=== PATIENT | female | born 1965 | race Caucasian/White ===

== ENCOUNTER → 2018-11-11 | Outpatient (CLI) | payer OTHER, SELFPAY | END | disposition home or self-care (01) | LOC: SL 20:30 | PROVIDERS: Family Provider Family Medicine; PCP Family Medicine; Referring Provider Otolaryngology Otolaryngology/Facial Plastic Surgery; Visit Provider Otolaryngology Otolaryngology/Facial Plastic Surgery | DX: G47.33 Obstructive sleep apnea (adult) (pediatric) (principal); J34.2 Deviated nasal septum | CPT/HCPCS: 95810 ==

== ENCOUNTER → 2018-12-05 | Outpatient (CLI) | payer OTHER, SELFPAY ==
--- NOTE | 2018-12-05 09:19 | EKG12_ITS ---
Test Reason : PRE-OP Blood Pressure : / mmHG Vent. Rate : 077 BPM Atrial Rate : 077 BPM P-R Int : 176 ms QRS Dur : 104 ms QT Int : 386 ms P-R-T Axes : 069 068 057 degrees QTc Int : 436 ms Normal sinus rhythm Normal ECG No previous ECGs available Confirmed by NIXON LA ([id number]), writer editor VERONICA MOURA ([id number]) on 12/08/2018 8:08:59 AM Referred By: Andres Ugarte Confirmed By:NIXON LA
== END | disposition home or self-care (01) ==
LOC: CVS 09:16
PROVIDERS: Family Provider Family Medicine; PCP Family Medicine; Referring Provider Otolaryngology Otolaryngology/Facial Plastic Surgery; Visit Provider Otolaryngology Otolaryngology/Facial Plastic Surgery
DX: Z01.818 Encounter for other preprocedural examination (principal)
CPT/HCPCS: 93005

== ENCOUNTER → 2018-12-10 | Outpatient (CLI) | payer OTHER, SELFPAY ==
--- NOTE | 2018-12-09 | SEP_PTH ---
PATIENT: MILY BRASHER LOC: [facility] U#:[id number] AGE/SX: 53/F ROOM: RE12/10/[address]: Dr. Andres Ugarte MD : 1965 BED: DIS: 12/10/2018 SPEC #: [id number] RECD: 12/10/18 15:28 STATUS: ZULMA PEPE #: [id number] AIDEN: 12/09/18 00:[address]: Andres Ugarte DEPT: SURGICAL PATHOLOGY RECD BY: Jayme Thompson ENTERED: 12/11/18 09:36 SP TYPE: SEPTUM OTHR DR: Dr. Prashant Fan MD [facility] Tissues: Nasal septum, NOS Procedures: Decalcification bone/plaque Surgery Specimen Level III HEADER OPERATION: Septoplasty, resection inferior turbinates PRE-OP DIAGNOSIS: Deviated septum TISSUE SUBMITTED: Septal cartilage MICROSCOPIC DIAGNOSIS Septal cartilage: A piece of bone and cartilage, clinically deviated nasal septum. SJ:sandy 12/17/18 MICROSCOPIC DESCRIPTION Slides are reviewed. GROSS DESCRIPTION Received in fixative is one container labeled with the patient's name and designated septal cartilage. The specimen consists of a piece of bone and cartilage measuring 0.5 x 0.5 x 0.2 cm. The entire specimen is submitted in one cassette after decalcification. / ANN:sandy 12/11/18 TC:5 CPT: 72185, 17375
== END | disposition home or self-care (01) ==
LOC: LABSPEC 15:39
PROVIDERS: Family Provider Family Medicine; PCP Family Medicine; Referring Provider Otolaryngology Otolaryngology/Facial Plastic Surgery; Visit Provider Otolaryngology Otolaryngology/Facial Plastic Surgery
DX: J34.2 Deviated nasal septum (principal)
CPT/HCPCS: 88304; 88311

== ENCOUNTER → 2024-08-29 | Outpatient (CLI) | payer OTHER, SELFPAY ==
--- NOTE | 2024-08-29 08:45 | US_ITS ---
PROCEDURE: ABDOMEN LIMITED 08/29/2024 REASON FOR EXAM: CHOLECYSTITIS COMPARISON: CT abdomen and pelvis on 07/11/2024 FINDINGS: Liver: Grossly normal size and echotexture. Measures 14.1 cm longitudinally. No discrete lesion. Gallbladder: There are gallstones present resulting in the wall echo shadow sign. No significant gallbladder wall thickening or pericholecystic fluid. Negative sonographic Velez's sign per technologist report. Common bile duct: Borderline dilated measuring 7 mm . Pancreas: Visualized portions are sonographically unremarkable. Right kidney: 10.5 x 3.9 by 5.1 cm. No hydronephrosis. US/Abdomen Limited IMPRESSION: Cholelithiasis, without additional findings of acute cholecystitis at this time . Reading Location: [facility]
== END | disposition home or self-care (01) ==
LOC: US 08:43
PROVIDERS: PCP Nurse Practitioner Family; Referring Provider Student in an Organized Health Care Education/Training Program; Visit Provider Student in an Organized Health Care Education/Training Program
DX: K81.9 Cholecystitis, unspecified (principal)
CPT/HCPCS: 76705

== ENCOUNTER 2024-11-05 08:05 | Day surgery (SDC) | payer OTHER, SELFPAY ==
--- NOTE | 2024-10-26 08:49 | EKG12_ITS ---
Test Reason : PREOP Blood Pressure : */* mmHG Vent. Rate : 73 BPM Atrial Rate : 73 BPM P-R Int : 174 ms QRS Dur : 104 ms QT Int : 396 ms P-R-T Axes : 71 85 52 degrees QTcB Int : 436 ms Normal sinus rhythm Normal ECG Confirmed by EMELI SKELTON, GERI ([id number]), mapping editor SHIVANI AYOUB ([id number]) on 10/27/2024 6:37:37 AM Referred By: Adrián Lazo Confirmed By: GERI SAINZ MD
[2024-10-26 10:28] LABS: Hematocrit 35.4 % (37-47); Hemoglobin 12.0 g/dL (12.0-15.0); Mean Corp Hgb Conc 33.9 g/dL (32-36); Mean Corpuscular Volume 95.7 fL (81-99); Mean Platelet Vol. 10.2 fl (6.2-12.0); Platelet Count 379 K/mm3 (150-450); RBC Distribution Width CV 13.7 % (11.6-14.6); RBC Distribution Width SD 47.6 fl (35.1-43.9); Red Blood Count 3.70 M/mm3 (4.2-5.4); White Blood Count 5.3 K/mm3 (4.4-11.0)
[2024-11-05] VITALS (11 sets, daily range): BP systolic 111–136; BP diastolic 57–72; PULSE 52–79; RESP 14–16; TEMP 36–36.4; O2SAT 93–98; BMI 27.6
[2024-11-05] MEDS: Lactated Ringers 1,000 ML 15 ML IV (08:39)
[2024-11-05] MEDS: INDOCYANINE GREEN 3.75 MG in Syringe 1.5 ML 999 MG IV (08:40)
--- NOTE | 2024-11-05 09:04 | PRE.ANES_ITS ---
ASA Classification* ASA Classification ASA Classification: 2 Assessment & Plan Anesthesia* Anesthesia Assessment Anesthesia Assessment: Discussed sedation and/or anesthesia options, risks, benefits, and alternatives with patient/parents/legal guardian/POA. Questions invited. The patient/parents/legal guardian/POA seems to understand and agrees to proceed with anesthesia plan. Reviewed the physical assessment, medical history, allergy history and patient home medications list prior to surgery/procedure/anesthetic and documented any changes. Performed airway and anesthesia risk assessments. Anesthesia Type Anesthesia Type: General History Source History Obtained from:: Patient and Chart Anesthesia Focused Assessment* Temperature: 96.8 F Pulse Rate: 52 Blood Pressure: 111/66 Respiratory Rate: 16 Pulse Ox: 98 Oxygen Delivery Method: Room Air Airway Assessment Mouth opens: >3 cm Mallampati Score: III Teeth Condition: Caps/Crowns (Patient has 1 crown. It is tight.) Neck Range of motion (ROM): Full ROM Comment: Short temporomandibular distance Labs Anesthesia Preop lab: CBC WBC 5.3 K/mm3 (4.4-11.0) 10/26/24 09:03 10/26/24 RBC 3.70 M/mm3 (4.2-5.4) L 10/26/24 09:03 10/26/24 Hgb 12.0 g/dL (12.0-15.0) 10/26/24 09:03 10/26/24 Hct 35.4 % (37-47) L 10/26/24 09:03 10/26/24 Plt Count 379 K/mm3 (150-450) 10/26/24 09:03 10/26/24 CHEMISTRY COAG Pre-Assessment Diagnosis/Proposed Procedure Planned Operative Procedure(s): ROBOTIC CHOLECYSTECTOMY WITH ICG Anesthesia History Anesthesia History - biopharmaceutical rep: Anesthesia History - biopharmaceutical rep Hx Hospitalization No 10/22/24 09:48 Any Problems With Anesthesia No 10/22/24 09:48 Cholinesterase deficiency No 10/22/24 09:48 You/Your Family Experience No 10/22/24 09:48 fever (hyperthermia) with Relationship Recent Exposure to Contagious No 11/05/24 08:30 Disease Does patient have nerve No 10/22/24 09:48 stimulator Patient instructed to have device shut off --Does patient have Pacemaker No 11/05/24 08:30 or ICD? When Was Last Pacemaker Check QUESTION #4 FULL TEXT: You/Your Family Experience fever (hyperthermia) with Anesthesia Last Oral Intake Last Oral intake: Last Oral Intake NPO since 07:00 11/05/24 08:30 Meds taken in AM with sips of Yes 11/05/24 08:30 water? Meds patient instructed to omeprazole 11/05/24 08:30 take am of surgery Any additional information?: Yes NPO since: 07:00 (Patient took her omeprazole at 7 AM.) Meds taken in AM with sips of water?: Yes PONV PONV - biopharmaceutical rep: PONV - biopharmaceutical rep Female Yes 10/22/24 09:48 HX of Motion Sickness Yes 10/22/24 09:48 HX of N/V After Surgery No 10/22/24 09:48 Non-Smoker Yes 10/22/24 09:48 Duration of Surgery greater Yes 10/22/24 09:48 than 60 minutes Number of Risk Factors 4 10/22/24 09:48 PONV Score Severe Risk 10/22/24 09:48 Height & Weight Height & Weight: Anesthesia: Height & Weight Height 5 ft 4 in 11/05/24 08:30 Weight: 73 kg 11/05/24 08:30 Body Mass Index (BMI) 27.6 11/05/24 08:30 Respiratory Assessment Respiratory Assessment - biopharmaceutical rep: Respiratory Tract Infection Hx - biopharmaceutical rep Hx Respiratory Tract Infection No 10/22/24 09:48 STOP Sleep Apnea STOP Sleep Apnea - biopharmaceutical rep: STOP Sleep Apnea - biopharmaceutical rep Hx Hypertension No 10/22/24 09:48 Hx Sleep Apnea Yes 10/22/24 09:48 CPAP Yes 10/22/24 09:48 BIPAP No 10/22/24 09:48 Do you snore loudly (louder than talking or can be heard Do you often feel tired/ fatigued/ sleepy during daytime? Has anyone observed you stop breathing during sleep? STOP Results Positive 10/22/24 09:48 QUESTION #5 FULL TEXT : Do you snore loudly (louder than talking or can be heard through closed doors)? Tobacco Use History Tobacco Use History - biopharmaceutical rep: Tobacco Use History - biopharmaceutical rep Tobacco Use Smoking Status Never smoker 10/22/24 09:48 Hx Tobacco Use No 10/22/24 09:48 Years Smoking Packs Smoked per Day Smoking Cessation Date was within the last 15 years Hx Smoking Cessation Date Hx Smoking Cessation Counseling Hematologic Medial History Hematologic Hx - biopharmaceutical rep: Hematologic Medical Hx - stone and concrete washer Hx of Blood Transfusion No 10/22/24 09:48 Hx of Transfusion in last 3 No 10/22/24 09:48 Months Date of Last Transfusion (if within last 3 months) Ever experience any problems No 10/22/24 09:48 with transfusion(s)? Specify any problems Hx of Preganancy in last 3 No 10/22/24 09:48 Months Nurse Filling Out Transfusion DSCHRIBER 10/22/24 09:48 & Questions: Date: 10/22/24 10/22/24 09:48 Time: 09:49 10/22/24 09:48 Patient unable to answer at this time (ie. confused, unrespo /Reproduction History /Reproductive History - biopharmaceutical rep: /Reproductive Hx- biopharmaceutical rep Hx Now No 10/22/24 09:48 Gestational Age (in weeks): EDC: Hx Hx Para Hx Section SAB No 10/22/24 09:48 Active Medications Active Medications: Current Medications Generic Name Dose Route Start Last Admin Trade Name Freq PRN Reason Stop Dose Admin Indocyanine Green 3.75 mg/ N/A 1.5 mls @ 999 mls/hr 11/05/24 10:00 11/05/24 08:40 IV 11/05/24 10:01 999 mls/hr PREOP ONE Administration Lactated Ringer's 1,000 mls @ 15 mls/hr 11/05/24 08:30 11/05/24 08:39 IV 15 mls/hr .Q48H ISHMAEL Administration PFSH Medical History Post-menopausal High cholesterol Injury of head and neck Back pain Gastric reflux Epigastric abdominal pain Wears glasses Non-smoker CPAP (continuous positive airway pressure) dependence Cholelithiases Cholecystitis Home Medications ?Medication ?Instructions ?Recorded ?Last Taken ?Type cholecalciferol (vitamin D3) 25 25 mcg PO QDAY 5 11/02/24 History mcg (1,000 unit) capsule multivitamin 1 tab PO QAM 09/01/24 History omeprazole 20 mg capsule,delayed 20 mg PO QDAY 5 11/05/24 History release simvastatin 10 mg tablet 10 mg PO QHS cholesterol 10/2111/03/24 History topiramate 50 mg tablet 50 mg PO QHS 09/01/24 History Allergy/AdvReac Type Severity Reaction Status Date / Time cat dander (cats) Allergy Mild PT UNSURE Verified 11/05/24 08:28 OF REACTION dog dander Allergy Mild Other Verified 11/05/24 08:28 horse dander Allergy Mild Other Verified 11/05/24 08:28 Seasonal Allergies: Uncoded Allergy Mild Other Verified 11/05/24 08:28 (environmental) Surgical History History of bunionectomy of right great toe History of bunionectomy of left great toe History of esophagogastroduodenoscopy (EGD) History of endometrial ablation Hx of colonoscopy Benign nerve sheath neoplasm Social History Smoking Status: Never smoker alcohol intake: never Review of Systems (Anesthesia) ROS Narrative System reviewed and no additional complaints, except as documented.
--- NOTE | 2024-11-05 09:20 | PCM.HP.STD ---
HPI - General General Date of Admission: 11/05/24 Date of Service: 11/05/24 Chief Complaint: RUQ pain & gallstones HPI Narrative MILY BRASHER, is a 59 F who presents for robotic cholecystectomy . patient seen in office with symptomatic cholelithiasis [facility] Medical History Post-menopausal High cholesterol Injury of head and neck Back pain Gastric reflux Epigastric abdominal pain Wears glasses Non-smoker CPAP (continuous positive airway pressure) dependence Cholelithiases Cholecystitis Home Medications ?Medication ?Instructions ?Recorded ?Last Taken ?Type cholecalciferol (vitamin D3) 25 25 mcg PO QDAY 09/01/24 11/02/24 History mcg (1,000 unit) capsule multivitamin 1 tab PO QAM 09/01/24 11/02/24 History omeprazole 20 mg capsule,delayed 20 mg PO QDAY 09/01/24 11/05/24 History release simvastatin 10 mg tablet 10 mg PO QHS cholesterol 09/01/24 11/03/24 History topiramate 50 mg tablet 50 mg PO QHS 09/01/24 11/02/24 History Allergy/AdvReac Type Severity Reaction Status Date / Time cat dander (cats) Allergy Mild PT UNSURE Verified 11/05/24 08:28 OF REACTION dog dander Allergy Mild Other Verified 11/05/24 08:28 horse dander Allergy Mild Other Verified 11/05/24 08:28 Seasonal Allergies: Uncoded Allergy Mild Other Verified 11/05/24 08:28 (environmental) Surgical History History of bunionectomy of right great toe History of bunionectomy of left great toe History of esophagogastroduodenoscopy (EGD) History of endometrial ablation Hx of colonoscopy Benign nerve sheath neoplasm Social History Smoking Status: Never smoker alcohol intake: never Vital Signs Vital Signs Vital Signs: 11/05/24 08:30 11/05/24 08:30 11/05/24 09:16 Temperature 96.8 F L 96.8 F L Temperature Source Temporal Pulse Rate 52 L 52 L Respiratory Rate 16 16 Respiratory Pattern Normal Blood Pressure 111/66 111/66 Blood Pressure Mean 81 Blood Pressure Source Monitor Blood Pressure Position Semi-Fowlers Blood Pressure Location Left Arm Pulse Ox 98 98 Oxygen Delivery Method Room Air Room Air Weight Weight: 160 lb 14.999 oz Body Mass Index (BMI) 27.6 Physical Exam Const alert, oriented x3 and no apparent distress Results Lab / Micro Data 10/26/24 09:03 Assessment & Plan Assessment/Plan (1) Epigastric abdominal pain: (2) Cholelithiases: PLAN: Plan robotic cholecystectomy planned for today
--- NOTE | 2024-11-05 10:00 | GALL_PTH ---
PATIENT: MILY BRASHER LOC: [facility] [place] U#:[id number] AGE/SX: 59/F ROOM: RE11/05/[address]: Dr. Adrián Lazo MD : 1965 BED: DIS: 11/05/2024 SPEC #: [id number] RECD: 11/05/24 12:27 STATUS: ZULMA RERogers #: [id number] AIDEN: 11/05/24 10:[address]: Adrián Lazo DEPT: SURGICAL PATHOLOGY RECD BY: Barrera Delacruz ENTERED: 11/05/24 14:38 SP TYPE: RICCI REYES DR: Gabbie Davis, STEPHANIE Tissues: A - Gallbladder, NOS Procedures: Surgery Specimen Level III HEADER OPERATION: Robotic cholecystectomy with IOC PRE-OP DIAGNOSIS: Epigastric abdominal pain, cholelithiasis TISSUE SUBMITTED: A- Gallbladder MICROSCOPIC DIAGNOSIS A. Gallbladder, cholecystectomy: * Chronic cholecystitis with mucosal erosion and cholelithiasis MICROSCOPIC DESCRIPTION Slides are reviewed. GROSS DESCRIPTION A. Received in formalin labeled with the patient's name and date of . Designated as gallbladder is a 14.0 x 5.0 x 4.7 cm mcgarry-pink, distended gallbladder with patchy serosal congestion/adhesions and with an attached patent cystic duct (inked black, shaved). A lymph node is not present. Opening reveals cloudy, tenacious bile and a 2.8 cm green, bosselated cholelith. The mucosa is pale mcgarry-white and trabeculated with patchy erythema and a maximum wall thickness of 0.1 cm. There are possible diverticula identified. Foci of possible cholesterolosis are present. Promotional Marketing Analyst sections are submitted in 2 cassettes. NM 11/05/2024 CPT:[id number]
[2024-11-05] MEDS: Bupiv/Epi 0.25% 30 ML Vial (10:25)
--- NOTE | 2024-11-05 11:42 | DCINST_ITS ---
Discharge Instructions Diet Discharge Diet: Light diet - advance as tolerated Activity Discharge Activity: May Shower May shower in (days): 1 Ice area for (Minutes): 30 Lifting Restrictions: No lifting pushing or pulling more than 20 pounds for 4 weeks Dressing / Incision Call your doctor if your incision/area has: Continuous Slow Oozing, Sudden Increased Bleeding, Increased Pain/ Swelling, Increased Redness, Foul Smelling Discharge and Swelling at the incision site Call your doctor if you observe: Fever of 101 or Higher Cleanse incision/area with: Soap & Water Follow Up Care Please Follow Up With: Adrián Lazo MD When: 2 weeks. Please call office to schedule appointment Test Results: Test results from this visit will be discussed in further detail at your follow- up appointment, if applicable. Discharge Plan Admission Primary Reason for Your Visit: Robotic cholecystectomy Attending Provider: Adrián Lazo Primary Care Provider: Gabbie Davis Instructions Print Language: Danish Discharge Orders/Prescriptions Prescriptions: New oxycodone-acetaminophen [Percocet] 5-325 mg tablet 1 tab PO Q8H PRN (Reason: pain) 4 Days Qty: 12 0RF Continued omeprazole 20 mg capsule,delayed release(DR/EC) 20 mg PO QDAY topiramate 50 mg tablet 50 mg PO QHS simvastatin 10 mg tablet 10 mg PO QHS cholecalciferol (vitamin D3) 25 mcg (1,000 unit) capsule 25 mcg PO QDAY multivitamin Tablet 1 tab PO QAM Referrals / Follow Up: Gabbie Davis, AUTO SERVICE INSTRUCTOR-C [Primary Care Provider] - Disposition Disposition (needs filled in before D/C Order can be placed): Home, Self Care
--- NOTE | 2024-11-05 11:47 | OP.PCM_ITS ---
Procedures Digestive 40xxx-49xxx: 23369 Laparo cholecystectomy/graph Operative Report (Standard) Operative Information Date of Procedure: 11/05/24 Pre-Operative Diagnosis: Symptomatic cholelithiasis Post-Operative Diagnosis: Same plus chronic cholecystitis Surgery/Procedure Performed: Robotic cholecystectomy with ICG cholangiograms tool maintenance worker: Yes Registered Respiratory Technician: Tashi Sweeney Tasks completed by assistant broker: Closing, Trocar and Other Additional assistant offset press operator?: No Type of Anesthesia: General and Local RN Documented Start/Stop Times: Operation Date: 11/05/24 10:00 Case Time Into Pre-Op 11/05/24 08:18 Anesthesia Start 11/05/24 09:57 Into Room 11/05/24 09:57 Out of Pre-Op 11/05/24 09:57 Procedure Start 11/05/24 10:16 Procedure End 11/05/24 11:57 Anesthesia End 11/05/24 12:03 Out of Room 11/05/24 12:03 Into Recovery 11/05/24 12:05 Procedure Start Time: 10:16 Procedure Stop Time: 11:57 Select all DRAINS/GRAFTS/IMPLANTS that apply: None Estimated Blood Loss: 20 mL Specimen collected: Yes Description of specimen(s) removed: Gallbladder Description of surgery: The patient is a 59-year-old female who is seen through the office recently with periodic right upper quadrant pain and gallstones. I offered her robotic cholecystectomy as treatment. We discussed the details of the planned procedure and she wished to proceed. Preoperatively, we discussed the details of the planned procedure including risk benefits and alternatives She was brought to the op room today following informed consent. She is placed supine on the operative table with arms outstretched and arm boards. Earlier in the morning ICG was injected in preop area. A general anesthesia was induced. Her arms were comfortably tucked at her side. The abdomen was then prepped and draped in the usual sterile manner. An 8 mm incision was made just below the umbilicus which a 5 mm trocar was placed optically. This was placed without incident. Once in place the abdomen is then fully insufflated with CO2 gas. There were no signs of bowel or vascular injury after 5 mm scope was inserted. Next a 8 mm trocar was placed under direct visualization in the right side of the abdomen and 2 additional 8 mm trocars. All these were placed under direct visualization. The patient was then placed in mild head up positioning along with some roll to the left. The da Yaz robot was then brought onto the operative field and appropriately docked. Instruments were then inserted without incident. The gallbladder was identified in the right upper quadrant. It was quite distended and very large. There was also significant amount of omentum adherent to the surface of the gallbladder. The gallbladder was grasped and reflected in a cephalad direction. Next using electrocautery, the adherent omentum was then peeled off of the undersurface of the gallbladder. The peritoneum on either side of the gallbladder was then incised using electrocautery and the J-hook. Dissection down towards the infundibulum was performed. There was quite a bit of chronic inflammation present in this region. The lower aspect of the gallbladder was dissected off of the liver. This allowed dissection of the remaining structures. This revealed the cystic duct. This was confirmed with ICG cholangiogram. The cystic duct was then felt to be appropriately identified as a critical view of safety was achieved. 2 clips were placed proximally and 1 was placed distally. The cystic was then transected using electrocautery and the J-hook. The gallbladder was then bovied off of the undersurface of the liver. I suspect the artery was transected with electrocautery and the dissection process and there was no bleeding evident. The gallbladder again was very distended and floppy and full of stones and bile. The gallbladder was carefully removed from the liver bed. Once free it was placed into a bag and brought out through the umbilical trocar site. Due to the large size of the gallbladder and all of its contents, the fascia opening and skin opening did need to be extended in order to remove the gallbladder from the abdomen. The fascial opening was then closed using 0 PDS. Laparoscopic scope/camera was reintroduced into the abdomen to ensure that closure was ef fective and no other structures were incorporated into the closure. This was satisfactory. At this point the remaining trocars were opened up. Insufflation was allowed to escape. There was no evidence of bleeding or bowel or vascular injury. The trocars were removed. Local anesthetic was injected into each of the incisions. Incisions were then closed with 4-0 Vicryl at the skin. A few 3-0 Vicryl's were used to close the incision at the umbilicus and a deeper layer as well. Skin glue was applied as dressing. She was awakened from anesthesia and taken recovery in good condition. Surgical Findings: Chronic cholecystitis Complications Complications: No Admit VTE Documentation VTE Present on Admission: No VTE Mechan Device Prophylaxis: SCD's VTE Pharm Prophylaxis ordered?: No Reason prophylaxis not ordered: Treatment Not Indicated
--- NOTE | 2024-11-05 12:08 | PCM.POST.ANE ---
Anesthesia: Postop Eval I Current Vital Signs Temperature: 97 F Pulse Rate: 79 Blood Pressure: 127/59 Respiratory Rate: 14 Pulse Ox: 94 Assessment Airway patent: Yes Spontaneous unlabored respirations: Yes nausea: No Vomiting: No Anesthesia Complication: No Fluid Hydration Crystalloid volume administer (ml): 1,700 Total IV fluid infused: 1,700 Progress Note Anesthesia document: Postop Eval 1 completed: Yes
--- NOTE | 2024-11-05 14:37 | POSTOPAN2_ITS ---
Anesthesia Postop Eval I Sum Postop Eval Completion status Anesthesia document: Postop Eval 1 completed: Yes Anesthesia Postop Eval I Summary Anesthesia Postop Eval I Summary: Anesthesia Postop Eval I: Assessment Summary Airway patent Yes 11/05/24 12:08 BRAKE [email or web address] [email or web address] Spontaneous unlabored Yes 11/05/24 12:08 BRAKE REPAIRER [email or web address] respirations Mental status nausea No 11/05/24 12:08 BRAKE REPAIRER [email or web address] Vomiting No 11/05/24 12:08 BRAKE [email or web address] [email or web address] Anesthesia Postop Eval I: Fluid Summary Crystalloid volume administer 1,700 11/05/24 12:08 BRAKE [email or web address] [email or web address] (ml) Colloids volume administered ( ml) Blood Product volume administered (ml) Total IV fluid infused 1,700 11/05/24 12:08 BRAKE [email or web address] [email or web address] Anesthesia Postop Eval I: Summary Notes Anesthesia Complication No 11/05/24 12:08 BRAKE [email or web address] [email or web address] Anesthesia Complication Comment: Post-operative progress note Anesthesia: Postop Eval II Evaluation Mental status: Awake and Calm Pain Level: 0 nausea: No Vomiting: No Complications Anesthesia Complication: No
--- NOTE | 2024-11-05 14:37 | PCM.POSTANE2 ---
Anesthesia Postop Eval I Sum Postop Eval Completion status Anesthesia document: Postop Eval 1 completed: Yes Anesthesia Postop Eval I Summary Anesthesia Postop Eval I Summary: Anesthesia Postop Eval I: Assessment Summary Airway patent Yes 11/05/24 12:08 [email or web address] Spontaneous unlabored Yes 11/05/24 12:08 [email or web address] respirations Mental status nausea No 11/05/24 12:08 [email or web address] Vomiting No 11/05/24 12:08 [email or web address] Anesthesia Postop Eval I: Fluid Summary Crystalloid volume administer 1,700 11/05/24 12:08 [email or web address] (ml) Colloids volume administered ( ml) Blood Product volume administered (ml) Total IV fluid infused 1,700 11/05/24 12:08 [email or web address] Anesthesia Postop Eval I: Summary Notes Anesthesia Complication No 11/05/24 12:08 [email or web address] Anesthesia Complication Comment: Post-operative progress note Anesthesia: Postop Eval II Evaluation Mental status: Awake and Calm Pain Level: 0 nausea: No Vomiting: No Complications Anesthesia Complication: No
== END 2024-11-05 13:54 | disposition home or self-care (01) ==
LOC: SDC 08:11 → AC 08:11
PROVIDERS: PCP Nurse Practitioner Family; Referring Provider Surgery; Visit Provider Surgery
PROC: 0FT44ZZ Resection of Gallbladder, Percutaneous Endoscopic Approach (ICD-10-PCS; CPT 47562; principal; 2024-11-05 09:40)
DX: K80.64 Calculus of gallbladder and bile duct with chronic cholecystitis without obstruction (principal); K21.9 Gastro-esophageal reflux disease without esophagitis; E78.00 Pure hypercholesterolemia, unspecified; Z79.899 Other long term (current) drug therapy
CPT/HCPCS: 47563; 00790; 36415; 85027; 88304; 93005; J2405